=== PATIENT | male | born 1990 | race African-American/Black ===

== ENCOUNTER 2023-01-31 01:45 | Emergency (ER) | payer OTHER ==
[2023-01-31] MEDS ORDERED: LORAZEPAM 2 MG/ML 1 ML VIAL IVP ONE (02:00)
[2023-01-31] MEDS ORDERED: CARBAMAZEPINE ER 200 MG TAB PO SCH (02:00)
[2023-01-31 02:02] LABS: BASOPHILS % (AUTO) 0.2 % (0.0-5.0); EOSINOPHILS % (AUTO) 0.8 % (0.0-8.0); HEMATOCRIT 41.1 % (42-54); LYMPHOCYTES % (AUTO) 19.1 % (21.0-51.0); MEAN CORPUSCULAR HEMOGLOBIN 23.3 pg (27.0-33.0); MEAN CORPUSCULAR HGB CONC 31.6 g/dL (32.0-36.0); MEAN CORPUSCULAR VOLUME 73.7 fL (79-99); MONOCYTES % (AUTO) 11.3 % (3.0-13.0); NEUTROPHILS % (AUTO) 68.5 % (40.0-77.0); PLATELET COUNT (AUTO) 197 K/uL (130-400); RED BLOOD CELL COUNT(AUTO) 5.58 MIL/uL (4.50-6.20); RED CELL DISTRIBUTION WIDTH 13.7 % (11.0-15.5); WHITE BLOOD COUNT (AUTO) 8.8 K/uL (4.8-10.8)
[2023-01-31] MEDS ORDERED: CARB200T PO (02:02)
[2023-01-31 02:11] LABS: CREATININE 1.1 mg/dL (0.5-1.5); POTASSIUM 4.2 mmol/L (3.5-5.1)
[2023-01-31 02:22] VITALS: BP 132/74
[2023-01-31] MEDS ORDERED: LEVETIRACETAM 500 MG TABLET PO ONE (02:40)
[2023-01-31] MEDS ORDERED: LEVETIRACETAM 500 MG TABLET PO SCH (03:00)
[2023-01-31] MEDS ORDERED: LEVETIRACETAM 500 MG/5 ML SD VIAL IV SCH (03:00)
== END 2023-01-31 02:54 | disposition home or self-care (01) ==
LOC: EDH 01:45
DX: G40.909 Epilepsy, unspecified, not intractable, without status epilepticus (principal)
CPT/HCPCS: 99283; 96374; 80053; 85025; 36415; J2060

== ENCOUNTER 2023-02-21 03:15 | Emergency (ER) | payer OTHER ==
[~2023-02-21 03:15] MED LIST: CARB200T PO
[2023-02-21] MEDS ORDERED: LACTATED RINGERS 1000ML 1,000 ML IV ONE (04:00)
[2023-02-21 04:48] LABS: BASOPHILS % (AUTO) 0.2 % (0.0-5.0); EOSINOPHILS % (AUTO) 1.1 % (0.0-8.0); HEMATOCRIT 40.4 % (42-54); LYMPHOCYTES % (AUTO) 23.2 % (21.0-51.0); MEAN CORPUSCULAR HEMOGLOBIN 23.3 pg (27.0-33.0); MEAN CORPUSCULAR HGB CONC 30.7 g/dL (32.0-36.0); MEAN CORPUSCULAR VOLUME 75.9 fL (79-99); MONOCYTES % (AUTO) 9.8 % (3.0-13.0); NEUTROPHILS % (AUTO) 65.5 % (40.0-77.0); PLATELET COUNT (AUTO) 172 K/uL (130-400); RED BLOOD CELL COUNT(AUTO) 5.32 MIL/uL (4.50-6.20); RED CELL DISTRIBUTION WIDTH 13.1 % (11.0-15.5); WHITE BLOOD COUNT (AUTO) 6.1 K/uL (4.8-10.8)
[2023-02-21 04:51] LABS: CREATININE 0.9 mg/dL (0.5-1.5); POTASSIUM 4.1 mmol/L (3.5-5.1)
[2023-02-21] MEDS ORDERED: LEVETIRACETAM 1,500 MG in 0.9%NACL 100ML 100 ML IV STA (05:01)
[2023-02-21] MEDS ORDERED: LEVE1000 PO (05:04)
[2023-02-21 05:06] LABS: ALBUMIN 3.6 g/dL (3.5-5.0); TOTAL PROTEIN, SERUM 6.8 g/dL (6.0-8.3)
[2023-02-21] MEDS ORDERED: LEVETIRACETAM 500 MG/5 ML SD VIAL IV ONE (05:09)
[2023-02-21 05:16] VITALS: BP 125/70
[2023-02-21 05:34] LABS: B-TYPE NATRIURETIC PEPTIDE < 5 pg/mL (0-100)
== END 2023-02-21 05:24 | disposition home or self-care (01) ==
LOC: EDH 03:15
DX: G40.909 Epilepsy, unspecified, not intractable, without status epilepticus (principal); Z79.899 Other long term (current) drug therapy; Z91.148 Patient's other noncompliance with medication regimen for other reason
CPT/HCPCS: 99285; 96365; 70450; 71045; 96361; 82550; 84484; 80053; 83880; 85025; 36415; 93005; J7120; J1953